=== PATIENT | female | born 1990 | race Caucasian/White ===

== ENCOUNTER 2016-09-30 14:59 | Emergency (ER) | payer MEDICAID, OTHER ==
[~2016-09-30] VITALS: Ht 162.6 cm; Wt 55.2 kg
[~2016-09-30 14:59] MED LIST: ACET325T14 PO; CIPR500T87 PO; D-ME245.3 PO; IBUP-1222 PO; IBUP200T5 PO; ONDA4TAB13 PO
[2016-09-30] MEDS ORDERED: SODIUM CHLORIDE 0.9% 1,000 ML IV ONE (15:21)
[2016-09-30] MEDS ORDERED: SODIUM CHLORIDE 0.9% 1,000ML IVBOLUS ONE (15:30)
[2016-09-30] MEDS ORDERED: ONDANSETRON 2MG/ML, 2ML IVPush ONE (15:30)
[2016-09-30] MEDS ORDERED: SODIUM CHLORIDE FLUSH 10ML SYR IVF ONE (15:30)
[2016-09-30 15:55] LABS: HEMATOCRIT 41.6 % (34.6-47.8); HEMOGLOBIN 13.9 g/dL (11.7-16.4); WHITE BLOOD COUNT 7.4 x10^3/uL (3.4-10)
[2016-09-30 15:58] LABS: ASPARTATE AMINO TRANSFERASE 9 U/L (15-37); BLOOD UREA NITROGEN 13 mg/dL (7-18)
[2016-09-30] MEDS ORDERED: ONDANSETRON 2MG/ML, 2ML ONE (16:06)
[2016-09-30] MEDS ORDERED: KETOROLAC 30 MG/1 ML ONE (16:21)
[2016-09-30 16:25] VITALS: BP 109/66
[2016-09-30 16:29] LABS: PATH.CAST-FLAG NOT PRESENT; SPERM-FLAG NOT PRESENT; SRC-FLAG NOT PRESENT; XTAL-FLAG NOT PRESENT; YLC-FLAG NOT PRESENT
[2016-09-30] MEDS ORDERED: KETOROLAC 30 MG/1 ML IVPush ONE (16:30)
[2016-09-30] MEDS ORDERED: MORPHINE SULFATE 4 MG/ML, 1ML ONE (17:15)
[2016-09-30] MEDS ORDERED: MORPHINE SULFATE 4 MG/ML, 1ML IVPush PRN (17:30)
== END 2016-09-30 17:23 | disposition home or self-care (01) ==
LOC: ED 15:24
DX: M32.9 Systemic lupus erythematosus, unspecified (principal)
CPT/HCPCS: 36415; 80053; 81001; 83690; 84703; 85025; 87086; 96361; 96374; 96375; 99284; J1885; J7030